=== PATIENT | female | born 1950 | race Caucasian/White ===

== ENCOUNTER → 2018-02-01 09:45 | Outpatient (CLI) | payer OTHER, SELFPAY | PROVIDERS: PCP Family Medicine; Visit Provider Orthopaedic Surgery | DX: M25.512 Pain in left shoulder (principal) | CPT/HCPCS: 99213 ==

== ENCOUNTER → 2018-02-20 11:31 | Outpatient (CLI) | payer OTHER, SELFPAY ==
--- NOTE | 2018-02-20 11:45 | DI.REPORT_ITS ---
SYMPTOM/DIAGNOSIS: MID BACK PAIN FOR YEARS, MID BACK PAIN LEFT SIDE M54.9 THORACIC SPINE: Comparison is made with chest x-ray dated 11 January 2018, The vertebral bodies are well maintained in height. There are degenerative disc changes greatest at T8-9 with anterior disc space narrowing and sclerosis. There is no significant scoliosis. There is no gross evidence of a lytic or blastic lesion. The heart size is normal. The lungs are clear. IMPRESSION: Degenerative disc changes greatest at T8-9 anteriorly.
== END ==
PROVIDERS: PCP Family Medicine; Visit Provider Family Medicine
DX: M54.6 Pain in thoracic spine (principal); M51.34 Other intervertebral disc degeneration, thoracic region
CPT/HCPCS: 72072

== ENCOUNTER 2018-03-13 00:55 | Outpatient (CLI) | payer OTHER, SELFPAY ==
--- NOTE | 2018-03-13 10:44 | DI.MRI_ITS ---
SYMPTOMS/DIAGNOSIS: MID LOWER BACK PAIN, M54.14, LEFT > RIGHT RIB PAIN MRI OF THE THORACIC SPINE: Comparison is made with plain films dated January,. Comparison is also made with a chest CT of October,. T1, T2, STIR and T2 3D sagittal and T2 axial sequences were performed. There are degenerative disc changes at T8-9 with endplate osteophytes, disc space narrowing and sclerosis. No disc herniation is seen at any level. There is no central canal stenosis or neural foraminal narrowing. The cord signal and marrow signal appear normal. No paraspinal masses are seen. IMPRESSION: Degenerative disc changes at T8-9. No evidence of disc herniation , neural foraminal narrowing or central canal stenosis.
== END 2018-03-13 01:15 ==
PROVIDERS: PCP Family Medicine; Visit Provider Nurse Practitioner Family
DX: M54.14 Radiculopathy, thoracic region; R07.81 Pleurodynia; M51.14 Intervertebral disc disorders with radiculopathy, thoracic region
CPT/HCPCS: 72146

== ENCOUNTER 2018-03-21 12:44 | Outpatient (CLI) | payer OTHER, SELFPAY ==
--- NOTE | 2018-03-21 10:35 | DI.RAD_ITS ---
SYMPTOMS/DIAGNOSIS: RT SHOULDER PAIN WITH RESTRICTED RUE ABDUCTION, M25.511 RIGHT SHOULDER: Five views were obtained. No bony or soft tissue abnormality is seen.
== END 2018-03-21 13:04 ==
PROVIDERS: PCP Family Medicine; Visit Provider Nurse Practitioner Family
DX: M25.511 Pain in right shoulder (principal); M25.611 Stiffness of right shoulder, not elsewhere classified
CPT/HCPCS: 73030

== ENCOUNTER 2018-08-08 00:56 | Outpatient (CLI) | payer OTHER, MEDICARE, SELFPAY ==
--- NOTE | 2018-08-08 12:56 | DI.MAMMO_ITS ---
SYMPTOMS/DIAGNOSIS: SCREENING, Z12.31 BILATERAL SCREENING MAMMOGRAM: Mammograms were interpreted according to the usual protocol including computer analysis with CAD system, tomosynthesis and C view imaging. Comparison is made with exams from 2013 through 2017. The breasts are composed of scattered fibroglandular densities. No suspicious masses or suspicious microcalcifications are seen. There has been no significant change. IMPRESSION: Category 1B, negative mammogram. Yearly screening mammography is recommended. [facility] ASSESSMENT OF FINDINGS: Negative. Category 1. Patient will receive a letter notifying them of these results. BI-RADS category B. There are scattered areas of fibroglandular density.
== END 2018-08-08 01:16 ==
PROVIDERS: PCP Family Medicine; Visit Provider Obstetrics & Gynecology Gynecology
DX: Z12.31 Encounter for screening mammogram for malignant neoplasm of breast (principal)
CPT/HCPCS: 77063; 77067

== ENCOUNTER 2018-11-30 02:07 | Outpatient (CLI) | payer OTHER, MEDICARE, SELFPAY ==
[2018-11-30 11:24] LABS: Cholesterol 201 mg/dL (50-200); HDL Cholesterol 61 mg/dL (40-60); LDL CHOLESTEROL 119 mg/dL (<100); Triglyceride 70 mg/dL (30-150)
== END 2018-11-30 02:27 ==
PROVIDERS: PCP Family Medicine; Visit Provider Family Medicine
DX: E78.5 Hyperlipidemia, unspecified (principal)
CPT/HCPCS: 36415; 80061; 83721

== ENCOUNTER 2019-07-23 11:19 | Outpatient (CLI) | payer OTHER, MEDICARE, SELFPAY ==
--- NOTE | 2019-07-23 11:24 | DI.RAD_ITS ---
EXAM: XR CERVICAL SP MUSE TRAUMA 2-3V CLINICAL HISTORY: Pain TECHNIQUE: COMPARISON: CERV SP.WITH OBL OR FLEX/EXT from 10/15/2014 FINDINGS: Two views were obtained. Prevertebral soft tissues appear intact. Intervertebral disc spaces appear fairly well maintained. Slight degenerative changes of the facet joints and endplates noted. No ot her bony abnormality seen. IMPRESSION: Mild degenerative changes, no other specific abnormality seen.
--- NOTE | 2019-07-23 11:29 | DI.RAD_ITS ---
EXAM: XR SHOULDER LT COMPLETE 2+V CLINICAL HISTORY: SHOULDER PAIN TECHNIQUE: COMPARISON: No exams were available for comparison FINDINGS: Two views were obtained. There appear to be hypertrophic degenerative changes of AC joint. Cartilag inous joint space of glenohumeral joint appears fairly well maintained. Minimal marginal osteophyte formation noted involving humerus and glenoid. No other significant bony abnormality seen on this li mited series. IMPRESSION:
== END 2019-07-23 11:39 ==
PROVIDERS: PCP Family Medicine; Visit Provider Student in an Organized Health Care Education/Training Program
DX: M54.2 Cervicalgia (principal); M25.512 Pain in left shoulder; M47.812 Spondylosis without myelopathy or radiculopathy, cervical region; M19.012 Primary osteoarthritis, left shoulder
CPT/HCPCS: 72040; 73030

== ENCOUNTER 2019-07-24 02:09 | Outpatient (CLI) | payer OTHER, MEDICARE, SELFPAY ==
[2019-07-24 08:22] LABS: HCT 41.8 % (36.0-46.0); HGB 13.9 g/dL (12.0-15.5); Mean Corp. HGB Concentration 33.3 g/dL (32.0-36.0); Mean Corpuscular Hemoglobin 28.7 pg (27.0-33.0); Mean Corpuscular Volume 86.2 fL (80-95); Mean Platelet Volume 9.8 fL (8.0-11.0); Platelet Count 283 x1000/uL (130-400); RBC 4.85 m/cumm (4.00-5.20); RBC Distribution Width 13.3 % (11.7-14.6); White Blood Cell Count 8.17 k/cumm (4.4-10.8)
[2019-07-24 09:10] LABS: ALT 23 U/L (14-59); AST 20 U/L (15-37); Alkaline Phosphatase 110 U/L (46-116); BUN 14 mg/dL (7-18); Bilirubin, Total 0.4 mg/dL (0.2-1.0); CREATININE 0.87 mg/dL (0.55-1.02); Chloride 103 mmol/L (98-107); Glucose 109 mg/dL (74-106); Potassium 4.1 mmol/L (3.5-5.1); Sodium 143 mmol/L (136-145); Total Protein 7.5 g/dL (6.4-8.2)
== END 2019-07-24 02:29 ==
PROVIDERS: PCP Family Medicine; Visit Provider Family Medicine
DX: I10 Essential (primary) hypertension (principal)
CPT/HCPCS: 36415; 80053; 85027

== ENCOUNTER 2019-08-01 01:30 | Outpatient (CLI) | payer OTHER, SELFPAY ==
--- NOTE | 2019-08-01 13:58 | DI.MRI_ITS ---
EXAM: MR UPPER JOINT LT WO CLINICAL HISTORY: LEFT SHOULDER TRAUMATIC WEAKNESS AND PAIN, M75.52 BURSITIS, M75.22 BICIPITAL TENDI NITIS, M75.42, S46.012A. TECHNIQUE: Multiplanar multisequence MRI was performed. MR examination of the left shoulder was per formed according to the usual protocol. COMPARISON: MRI - L UPPER JOINT WO CONT from 10/21/2016 XR SHOULDER LT COMPLETE 2+V from 07/23/2019 FINDINGS: There are hypertrophic degenerative changes and some signal abnormalities at the acromioclavicular fransisca int, subchondral bone with a small quantity of joint fluid in the acromioclavicular joint. Small hugo ntity of joint fluid also noted at the glenohumeral joint. Requisition raises the possibility of biceps tendon abnormality. The tendon appears normally positio beronica in the bicipital groove. Minimal fluid in the bicipital tendon sheath. Mild signal abnormality and thickening of the proximal 2 cm of the tendon adjacent to the biceps anchor. Tiny longitudinal t ear may be present but no major tear or retraction is seen. Subscapularis appears intact. Infraspinatus tendon appears intact except for minimal thickening near its humeral insertion. There is marked thickening of the supraspinatus tendon and there appears to be an attachment tear measuring about 10 x 7 x 6 millimeters. Glenoid labrum appears grossly intact as visualized. IMPRESSION: Mild bicipital tendinitis, possible tiny longitudinal tear near the biceps anchor. Supraspinatus tendon attachment tear, 10 x 6 x 7 millimeters.
== END 2019-08-01 01:50 ==
PROVIDERS: PCP Family Medicine; Visit Provider Student in an Organized Health Care Education/Training Program
DX: M25.512 Pain in left shoulder (principal); M75.52 Bursitis of left shoulder; M75.22 Bicipital tendinitis, left shoulder; M75.42 Impingement syndrome of left shoulder; M75.102 Unspecified rotator cuff tear or rupture of left shoulder, not specified as traumatic
CPT/HCPCS: 73221

== ENCOUNTER → 2019-08-20 07:58 | Outpatient (BNVA) | payer OTHER, SELFPAY | PROVIDERS: PCP Family Medicine; Referring Provider Family Medicine; Visit Provider Student in an Organized Health Care Education/Training Program | DX: S46.012D Strain of muscle(s) and tendon(s) of the rotator cuff of left shoulder, subsequent encounter (principal); W00.0XXD Fall on same level due to ice and snow, subsequent encounter; M75.52 Bursitis of left shoulder; M75.42 Impingement syndrome of left shoulder; M75.22 Bicipital tendinitis, left shoulder; G56.02 Carpal tunnel syndrome, left upper limb; I10 Essential (primary) hypertension | CPT/HCPCS: 99214 ==

== ENCOUNTER 2020-03-23 02:32 | Outpatient (CLI) | payer OTHER, SELFPAY ==
[2020-03-23 12:46] LABS: Calculated LDL 156 mg/dL (<100); Cholesterol 240 mg/dL (<200); HDL Cholesterol 70 mg/dL (40-60); Hemoglobin A1C 5.9 % (<5.7); Triglyceride 74 mg/dL (<150)
== END 2020-03-23 02:52 ==
PROVIDERS: PCP Family Medicine; Visit Provider Family Medicine
DX: E78.5 Hyperlipidemia, unspecified (principal); R73.9 Hyperglycemia, unspecified
CPT/HCPCS: 36415; 80061; 83036

== ENCOUNTER 2020-04-13 00:28 | Outpatient (CLI) | payer OTHER, SELFPAY ==
--- NOTE | 2020-04-13 11:00 | DI.MAMMO_ITS ---
EXAM: MG MAMMO SCREENING CLINICAL HISTORY: screening TECHNIQUE: Bilateral full field digital CC and MLO mammographic images were obtained with 3D tomosyn thesis and utilizing computer aided detection (CAD). COMPARISON: Available for comparison. FINDINGS: Masses/Architectural Distortion: None seen. Microcalcifications: No suspicious pleomorphic-type are seen. Skin Thickening/Nipple Retraction: None. IMPRESSION: 1. No significant interval change with no specific features of malignancy noted. 2. Unless there is more urgent need, screening mammography is recommended, as per [employer] guidelines. BI-RADS Category 1 - Negative Breast Density - Category B - Scattered areas of fibroglandular density A negative radiographic report should not delay biopsy if a dominant or clinically suspicious mass is present. Up to ten percent of cancers are not identified on mammography. A negative report may reinforce clinical impression. Adenosis and dense breasts may obscure an underlying neoplasm. False positive reports average 6 to 10%. Patient will receive a letter notifying them of these results.
== END 2020-04-13 00:48 ==
PROVIDERS: PCP Family Medicine; Visit Provider Obstetrics & Gynecology Gynecology
DX: Z12.31 Encounter for screening mammogram for malignant neoplasm of breast (principal)
CPT/HCPCS: 77063; 77067

== ENCOUNTER 2020-09-18 05:03 | Outpatient (CLI) | payer OTHER, SELFPAY ==
--- NOTE | 2020-09-18 08:15 | DI.RAD_ITS ---
EXAM: XR LUMBAR SPINE COMPLETE CLINICAL HISTORY: left lower back pain for months,m54.9. TECHNIQUE: 2D digital imaging was performed. COMPARISON: No exams were available for comparison FINDINGS: Stool and bowel gas partially obscures the lumbar spine and sacrum. BONES: No fracture or destructive lesion. Vertebral bodies are unremarkable. Mild facet hypertrophy i dentified. DISKS: Intervertebral disc spaces are maintained. Endplate osteophytes at L4-5. ALIGNMENT: Lumbar spinal alignment is within normal limits. SOFT TISSUE: Aortic calcification. Vascular clips in the pelvis. IMPRESSION: Mild degenerative changes, greatest at L4-5. DATA REPOSITORY: RADIATION DOSE DELIVERED:
== END 2020-09-18 05:23 ==
PROVIDERS: PCP Family Medicine; Visit Provider Family Medicine
DX: M47.816 Spondylosis without myelopathy or radiculopathy, lumbar region (principal)
CPT/HCPCS: 72110

== ENCOUNTER 2020-10-14 02:13 | Outpatient (CLI) | payer OTHER, SELFPAY ==
--- NOTE | 2020-10-14 06:45 | DI.MRI_ITS ---
EXAM: MR LUMBAR SPINE WO CLINICAL HISTORY: left sciatica DESPITE PT,LOW BACK PAIN, M54.5. TECHNIQUE: Multiplanar multisequence MRI of the Lumbar spine was performed. COMPARISON: MR MRI - LUMBAR SPINE WO CONTRAST from 07/04/2008 CR XR LUMBAR SPINE COMPLETE from 09/18/2020 FINDINGS: Conus medullaris is at normal level. There is no evidence of conus mass nor subjacent clumping of in trathecal nerve roots to suggest arachnoiditis. The distal thecal sac appears unremarkable.There is no evidence of Tarlov intrasacral cysts nor other significant findings within the sacral canal Bones:There are no fractures nor ominous osseous lesions in the lumbar vertebral bodies and visualize d sacrum. Absence of posterior osseous elements at lower 2 levels. No fusion hardware. With respect to the individual levels... T12-L1: Unremarkable L1-2: Normal disc height and signal. No disc herniation nor central canal stenosis.No foraminal steno sis L2-3: Normal disc height. Mild annular bulging without a distinct focal disc herniation.No 2 central spinal canal stenosis. No foraminal stenosis. No facet arthropathy.No facet arthropathy. L3-4: Preserved disc height. However, there is posterior broad annular bulging which is relatively s ymmetrical and which extends into the floor both exiting neural foramina but is not associated with f oraminal stenosis given that there is minimal if any significant height loss of the disc space. Pérez sarahy, there is mild central spinal canal stenosis due to the broad annular bulging and short AP dimens ions the pedicles and mild degenerative facet joint changes.. L4-5: Normal disc height and signal the exception of some narrowing of the most lateral left side of the disc space where there also osteophytes. I note that the prior plain films of 09/18/2020 were mi slabeled right and left on the AP view. Indeed the osteophytes this level are on the left side. At this level there is been previous surgery with removal of posterior osseous elements. Central can al dimensions are lower normal. There is broad annular bulging which flattens the anterior aspect of the thecal sac and there is also a superimposed central subligamentous disc protrusion which extends posteriorly 3 millimeters. Nevertheless, the central canal dimensions are lower normal. With respe ct to the exiting neural foramina, there is mild-moderate foraminal narrowing on the left side at thi s level which is due to the annular bulging into the floor of the exiting neural foramen and height l oss on the left side of this disc space. There is no vertical foraminal stenosis on the opposite-rig ht side at this level. Mild degenerative changes are seen in the right facet joint. L5-S1: Preserved disc height and signal. Mild central annular bulging without a dominant disc hernia tion. There is also been removal of posterior osseous elements at this level. There is mild antral spinal canal stenosis. There is no significant foraminal stenosis on either side. No facet arthropa thy evident at this level. Soft tissues: paraspinal soft tissues appear unremarkable. IMPRESSION: 1. There has been previous surgery with removal of posterior osseous elements at the lower 2 levels a s described above. 2. There are findings as described above at L3-4, L4-5, and L5-S1 levels. There is no prominent cent ral canal stenosis. There is, however, an element of asymmetric foraminal stenosis on left side at L 4-5 level. 3. Minimal facet joint degenerative changes in the lumbar spine. Mild scoliosis convex left. DATA REPOSITORY:
== END 2020-10-14 02:33 ==
PROVIDERS: PCP Family Medicine; Visit Provider Family Medicine
DX: M54.32 Sciatica, left side (principal); M54.5 Low back pain; M47.817 Spondylosis without myelopathy or radiculopathy, lumbosacral region
CPT/HCPCS: 72148

== ENCOUNTER 2020-12-04 00:31 | Outpatient (CLI) | payer OTHER, SELFPAY ==
[2020-12-04 12:53] LABS: Calculated LDL 142 mg/dL (<100); Cholesterol 235 mg/dL (<200); HDL Cholesterol 75 mg/dL (40-60); Triglyceride 90 mg/dL (<150)
[2020-12-04 13:02] LABS: Hemoglobin A1C 5.9 % (<5.7)
== END 2020-12-04 00:32 | disposition home or self-care (01) ==
LOC: LOS 00:33
PROVIDERS: PCP Family Medicine; Visit Provider Family Medicine
DX: R73.9 Hyperglycemia, unspecified (principal); E78.5 Hyperlipidemia, unspecified
CPT/HCPCS: 36415; 80061; 83036

== ENCOUNTER 2020-12-17 14:17 | Outpatient (CLI) | payer OTHER, SELFPAY ==
--- NOTE | 2020-12-17 06:00 | DI.RAD_ITS ---
Exam(s) XR PAIN CLINIC LUMBAR SP 2V EXAM: XR PAIN CLINIC LUMBAR SP 2V CLINICAL HISTORY: Dx:Lumbar Radiculopathy TECHNIQUE: 2D and realtime digital imaging was performed. Radiologist not present. CONTRAST MATERIAL: None. COMPARISON: No exams were available for comparison FINDINGS: Fluoroscopy was provided for pain management therapy. Apparently L4 transforaminal epidural injectio n Please refer to procedure for complete details Cumulative dose: Ka,r= mGy IMPRESSION: RADIATION DOSE DELIVERED:
[2020-12-17 14:29] VITALS: BP 142/69; PULSE 69; RESP 18; TEMP 36.4; O2SAT 95
[2020-12-17] MEDS: Omnipaque 240 MG/ML 50 ML BTL IJ (14:54)
[2020-12-17] MEDS: Dexamethasone Sod. Phos./Pres-Free 10 MG/ML VIAL IJ (14:54)
--- NOTE | 2020-12-17 15:16 | PDOC.PAIN_ITS ---
Pain Clinic Procedure Note Procedure Note Procedure Note: LUMBAR / SACRAL TRANSFORAMINAL INJECTION Kavita Becerra has been referred to the [facility] for a transforaminal nerve root block and steroid injection. COMMENTS:She was seen in our office on 12/01/2020. Pre-procedure VAS pain level was 6/10. Dx: Lumbosacral radiculopathy Patient was interviewed and the medical record reviewed. There were no medical, pharmacologic, radiographic or other structural contraindications to attempting fluoroscopically guided transforaminal nerve root block and epidural steroid injection. Risks and expected side effects as well as potential benefit of the procedure were reviewed and voiced concerns addressed. The printed consent form was signed and witnessed. Standard time-out procedure was performed. Patient was placed in the prone position on the fluoroscopy table and automated blood pressure cuff and pulse oximeter applied. Fluoroscopy was utilized to identify the left L4 neural foramen between L4 and L5. A skin payal was made for the needle insertion site. A Chlorhexadine prep was carried out, and sterile drapes were applied. Local anesthesia was achieved in the skin and subcutaneous tissues. A 22 gauge curved tip spinal needle was then inserted, advanced with fluoroscopic guidance into the neural foramen, confirmed on the lateral view. After negative aspiration, 2 ml of Omnipaque 240 was injected confirming position in A/P and lateral views. This showed a good spread of dye transforaminally into the epidural space. There was no vascular update with contrast injection under continuous fluoroscopy and digital substraction. 15 mg of Dexamethasone was injected, followed by 0.5 ml of 1% Xylocaine flush for the nerve root block, as well. There was no unusual discomfort expressed.The needle was withdrawn. The patient tolerated the procedure well. A Band-Aid was applied. Vital signs were stable throughout the procedure and were as recorded in nursing records. If given, dosages of intravenous drugs for anxiolysis and analgesia were documented in nursing records. Follow up plans and appointments were discussed. Post procedure instruction was given as documented in nursing records and patient was discharged in the care of an identified certified driver examiner. COMMENTS:Post-procedure pain VAS was 0/10. Ace Conde DO, MPH Pain Management CC: Sedrick Phan MD
[2020-12-17 15:24] VITALS: BP 157/67; PULSE 74; RESP 20; O2SAT 99
== END 2020-12-17 14:18 | disposition home or self-care (01) ==
PROVIDERS: PCP Family Medicine; Visit Provider Preventive Medicine Occupational Medicine
DX: M54.17 Radiculopathy, lumbosacral region (principal)
CPT/HCPCS: 64483; 72100; Q9967

== ENCOUNTER 2021-02-02 03:28 | Outpatient (CLI) | payer OTHER, SELFPAY ==
[2021-02-02 12:20] LABS: BUN 17 mg/dL (7-18); CREATININE 0.8 mg/dL (0.55-1.02)
== END 2021-02-02 03:29 | disposition home or self-care (01) ==
LOC: LOS 03:29
PROVIDERS: PCP Family Medicine; Visit Provider Neurological Surgery
DX: M51.16 Intervertebral disc disorders with radiculopathy, lumbar region (principal)
CPT/HCPCS: 36415; 84520; 82565

== ENCOUNTER 2021-02-22 00:56 | Outpatient (CLI) | payer OTHER, SELFPAY ==
[2021-02-22] MEDS: Gadoterate meglumine 20 ML VIAL 13 ML IVP (08:44)
[2021-02-22] MEDS: Normal Saline Flush 10 ML SYR IVP (08:45)
--- NOTE | 2021-02-22 09:15 | DI.MRI_ITS ---
Exam(s) MR LUMBAR SPINE WO/W EXAM: MR LUMBAR SPINE WO/W CLINICAL HISTORY: LEFT L4-5 FORAMINAL MASS, POSSIBLY ENLARGED ROOT VS TUMOR OR CYST. TECHNIQUE: Multiplanar multisequence MRI of the Lumbar spine was performed. Both pre and post contra st infused sequences were performed. Contrast injected was 13 mL Dotarem. COMPARISON: CR XR LUMBAR SPINE COMPLETE from 09/18/2020 MR MR LUMBAR SPINE WO from 10/14/2020 MR MR LUMBAR SPINE WO from 10/14/2020 FINDINGS: Conus medullaris is at normal level. There is no evidence of conus mass nor subjacent clumping of in trathecal nerve roots to suggest arachnoiditis. The distal thecal sac appears unremarkable.There is no evidence of Tarlov intrasacral cysts nor other significant findings within the sacral canal Bones:There are no fractures nor ominous osseous lesions in the lumbar vertebral bodies and visualize d sacrum. With respect to the individual levels... T12-L1: Unremarkable L1-2: Normal disc height and signal. No disc herniation nor central canal stenosis.No foraminal steno sis L2-3: Normal disc height. Mild annular bulging without a distinct focal disc herniation. Central can al dimensions are within normal limits and there is no significant foraminal stenosis. No facet arth ropathy. No abnormal enhancement. L3-4: Preserved disc height. Again noted is broad annular bulging which is relatively symmetrical an d extends into the floor both exiting neural foramina but without significant foraminal stenosis due to the relatively preserved disc height again evident at this level. However, there is again noted m ild central spinal canal stenosis which is due to a combination of the broad annular bulging and shor t AP dimensions the pedicles. No abnormal enhancement at this level.Appearance of this level is unch anged from the prior MRI study of October 2020. L4-5: Again noted is evidence of previous surgery with removal of posterior osseous elements. Annula r bulging at this level is unchanged. Central canal dimensions are lower normal. No foraminal steno sis on the right side. There is an element of foraminal stenosis on the left side at this level due to the fact that there has been some height loss on the left side of this disc space, unchanged from the previous study. No abnormal enhancement. L5-S1: This level exhibits preserved disc height and signal. Again noted is surgical removal of pos terior osseous elements. Mild annular bulging without a prominent disc herniation. Central canal di mensions are lower normal. No significant foraminal stenosis evident at this level. No obvious face t arthropathy. No abnormal enhancement. Soft tissues: paraspinal soft tissues appear unremarkable.No evidence of epidural nor paraspinal abs cess. IMPRESSION: 1. Minimal if any significant change when compared to the prior MRI scan of October 14, 2020. Again no zan is evidence of previous surgery with removal of posterior osseous elements at the lower 2 levels, as described above. 2. There is asymmetric foraminal stenosis again noted on the left side at L4-5 level. 3. No prominent central spinal canal stenosis. 4. No abnormal enhancing findings. No evidence of paraspinal nor epidural abscess. DATA REPOSITORY:
== END 2021-02-22 01:16 ==
PROVIDERS: PCP Family Medicine; Visit Provider Neurological Surgery
DX: M47.816 Spondylosis without myelopathy or radiculopathy, lumbar region (principal); Z98.890 Other specified postprocedural states
CPT/HCPCS: 72158

== ENCOUNTER 2021-02-22 02:53 | Outpatient (CLI) | payer OTHER, SELFPAY ==
[2021-02-22 09:50] LABS: Abs Immature Grans 0.02 10^3/uL (0.0-0.06); Absolute Basophil Count 0.06 10^3/uL (0.0-0.2); Absolute Eosinophil Count 0.14 10^3/uL (0.0-0.7); Absolute Lymphocyte Count 2.04 10^3/uL (1.2-3.4); Absolute Monocyte Count 0.55 10^3/uL (0.1-0.8); Absolute Neutrophil Count 3.52 10^3/uL (1.2-6.7); Basophils % 0.9; Eosinophils % 2.2; HCT 40.3 % (36.0-46.0); Immature Grans % 0.3; Lymphocytes % 32.2; MCH 28.7 pg (27.0-33.0); MCHC 32.3 % (32.0-36.0); MPV 10.2 fL (8.0-11.0); Monocytes % 8.7; Neutrophils % 55.7; Nucleated RBC 0 %; Platelet Count 234 10^3/uL (130-400); RBC 4.53 10^6/uL (3.93-5.22); RDW 12.9 % (11.7-14.6); RDW-SD 42.1 fL; WBC 6.33 10^3/uL (4.4-10.8)
[2021-02-22 10:13] LABS: Hemoglobin A1C 5.9 % (<5.7)
[2021-02-22 10:59] LABS: Vitamin D 25 Total 43.1 ng/mL (30-100)
[2021-02-22 11:20] LABS: ALT 15 U/L (14-59); AST 20 U/L (15-37); Albumin 3.9 g/dL (3.4-5.0); Alkaline Phosphatase 101 U/L (46-116); Anion Gap 7.9 mmol/L (3-11); BUN 16 mg/dL (7-18); Bilirubin, Total 0.4 mg/dL (0.2-1.0); CO2 29.1 mmol/L (21.0-32.0); CREATININE 0.9 mg/dL (0.55-1.02); Calcium 9.8 mg/dL (8.5-10.1); Calculated LDL 144 mg/dL (<100); Chloride 107 mmol/L (98-107); Cholesterol 242 mg/dL (<200); Ferritin 87 ng/mL (8-252); Folate 12.6 ng/mL (8.6-20.0); Glucose 112 mg/dL (74-106); HDL Cholesterol 75 mg/dL (40-60); Magnesium 2.3 mg/dL (1.8-2.4); Potassium 4.3 mmol/L (3.5-5.1); Sodium 144 mmol/L (136-145); TSH 1.56 uIU/mL (0.36-3.74); Total Protein 6.9 g/dL (6.4-8.2); Triglyceride 117 mg/dL (<150); Vitamin B12 965 pg/mL (193-986)
[2021-02-22 16:11] LABS: T3,Free 3.2 pg/mL (2.8-5.3)
[2021-02-23 09:18] LABS: IgA 298 mg/dL (85-499)
== END 2021-02-22 02:54 | disposition home or self-care (01) ==
LOC: LBO 02:53
PROVIDERS: PCP Family Medicine; Visit Provider Psychiatry & Neurology Psychiatry
DX: F33.41 Major depressive disorder, recurrent, in partial remission (principal); Z79.899 Other long term (current) drug therapy
CPT/HCPCS: 36415; 80053; 80061; 82306; 82784; 82607; 82728; 82746; 83036; 83735; 84439; 84443; 84481; 85025

== ENCOUNTER 2021-04-14 22:22 | Outpatient (REF) | payer OTHER, SELFPAY | END 2021-04-14 22:23 | disposition home or self-care (01) | LOC: LBN 22:22 | PROVIDERS: PCP Family Medicine; Visit Provider Family Medicine | DX: R30.0 Dysuria (principal) | CPT/HCPCS: 87077; 87086; 87186 ==

== ENCOUNTER 2021-06-16 00:20 | Outpatient (CLI) | payer MEDICARE, SELFPAY ==
--- NOTE | 2021-06-16 12:30 | DI.MAMMO_ITS ---
Exam(s) MAMMO SCREENING EXAM: MAMMO SCREENING CLINICAL HISTORY: screening. TECHNIQUE: Bilateral full field digital CC and MLO mammographic images were obtained with 3D tomosyn thesis and utilizing computer aided detection (CAD). COMPARISON: Prior mammograms dating back to 2010, the most recent being April 2020. FINDINGS: There are no new spiculated masses nor malignant appearing microcalcification groups. There is no significant architectural distortion nor skin thickening-retraction. IMPRESSION: No radiographic evidence of malignancy. BI-RADS Category 1 - Negative Breast Density - Category B - Scattered areas of fibroglandular density Breast density Category C or D implies that the patient has dense breast tissue. Dense breast tissue can make it harder to find cancer on a mammogram. Dense breast tissue is also associated with an incr eased risk of breast cancer. This information about the result of the mammogram report was provided to the patient to raise their awareness. Use this report when you speak with the patient about their risks for breast cancer, which includes their family history. At that time, you may recommend additional screening tests (Ultrasoun d or MRI) as these tests may add significant information. A negative radiographic report should not delay biopsy if a dominant or clinically suspicious mass is present. Up to ten percent of cancers are not identified on mammography. A negative report may reinforce clinical impression. Adenosis and dense breasts may obscure an underlying neoplasm. False positive reports average 6 to 10%. Patient will receive a letter notifying them of these results.
== END 2021-06-16 00:40 ==
PROVIDERS: PCP Family Medicine; Visit Provider Obstetrics & Gynecology Gynecology
DX: Z12.31 Encounter for screening mammogram for malignant neoplasm of breast (principal)
CPT/HCPCS: 77063; 77067

== ENCOUNTER 2021-07-05 00:40 | Outpatient (CLI) | payer MEDICARE, SELFPAY ==
--- NOTE | 2021-07-05 14:45 | DI.MRI_ITS ---
Exam(s) MR CERVICAL SPINE WO EXAM: MR CERVICAL SPINE WO CLINICAL HISTORY: BALANCE DISORDER, R26.89 TECHNIQUE: Multiplanar multisequence MRI of the cervical spine was performed without intravenous con trast. COMPARISON: MR MRI - CERVICAL SPINE WO CONT from 08/01/2016 MR MRI - CERVICAL SPINE WO CONT from 08/01/2016 MR MRI - BRAIN W/WO CONTRAST from 03/10/2017 MR MRA HEAD WO from 03/10/2017 MR MRA HEAD WO from 03/10/2017 CR XR CERVICAL SP MUSE TRAUMA 2-3V from 07/23/2019 CR XR CERVICAL SP MUSE TRAUMA 2-3V from 07/23/2019 FINDINGS: BONES: Vertebral body heights are maintained. Intervertebral disc spaces are normal. Alignment is nor mal. Bone marrow signal intensity is within normal limits. CERVICAL CORD: Craniovertebral junction is unremarkable. The cervical cord is normal size and signal intensity. SOFT TISSUES: Adenoid cysts. C2-3: No disc herniation or bulge is identified. C3-4: Minimal disc bulging. C4-5: Minimal disc bulging. C5-6: Mild interval worsening of degenerative disc changes with endplate osteophytes and mild disc bu lging. Mild neural foraminal narrowing. Mild central canal stenosis, with narrowing of the AP dimen erick.. C6-7: No disc herniation or bulge is identified. C7-T1: No disc herniation or bulge is identified. IMPRESSION: Mild central canal stenosis secondary to degenerative disc changes at C5-6. Mild neural foraminal na rrowing. No disc herniation. Normal cord signal. DATA REPOSITORY:
== END 2021-07-05 01:00 ==
PROVIDERS: PCP Family Medicine; Visit Provider Neurological Surgery
DX: M50.322 Other cervical disc degeneration at C5-C6 level (principal); M48.02 Spinal stenosis, cervical region; R26.89 Other abnormalities of gait and mobility
CPT/HCPCS: 72141

== ENCOUNTER 2021-08-16 19:09 | Outpatient (CLI) | payer MEDICARE, SELFPAY ==
--- NOTE | 2021-08-16 15:05 | DI.RAD_ITS ---
Exam(s) XR CERVICAL SP COMP W FLEX/EXT EXAM: XR CERVICAL SP COMP W FLEX/EXT CLINICAL HISTORY: NECK PAIN, IMBALANCE. TECHNIQUE: 2D digital imaging was performed. COMPARISON: CR XR CERVICAL SP MUSE TRAUMA 2-3V from 07/23/2019 MR MR CERVICAL SPINE WO from 07/05/2021 FINDINGS: No evidence of fracture, listhesis offset the spinal line. Mild-moderate disc space narrowing at C5- 6 levels again noted. This level also exhibits small bilateral Luschka joint osteophytes (and mild c entral spinal canal stenosis as per recent MRI scan). The other disc spaces exhibit normal height. No prominent facet arthropathy. No cervical ribs. Incidentally noted is calcified plaque at the carotid bifurcations bilaterally. IMPRESSION: Stable appearance of C5-6 disc space narrowing when compared to July 2019. Calcified plaque at the carotid bifurcations which indicates atherosclerotic involvement. Recommend Doppler imaging of the carotid arteries in the neck to determine if there is hemodynamically signific ant stenosis. DATA REPOSITORY: RADIATION DOSE DELIVERED:
== END 2021-08-16 19:29 ==
PROVIDERS: PCP Family Medicine; Visit Provider Physician Assistant Medical
DX: R26.89 Other abnormalities of gait and mobility; M50.322 Other cervical disc degeneration at C5-C6 level; M25.78 Osteophyte, vertebrae
CPT/HCPCS: 72052

== ENCOUNTER 2021-09-07 09:30 | Outpatient (CLI) | payer MEDICARE, SELFPAY ==
--- NOTE | 2021-09-07 09:30 | RT.EKG_ITS ---
APPROVED REPORT Exam: Resting ECG Reason for Exam: Pre-Op Patient Location: O HR:56 bpm ECG Measurements Heart Rate 56 AXIS AK 146 P 71 QRSd 80 QRS 64 QT 415 T 58 QTc 402 Conclusion Sinus bradycardia...rate< [address] depression, diffuse leads...ST <-0.07mV, ant/lat/inf
== END 2021-09-07 09:31 | disposition home or self-care (01) ==
LOC: DI.CM 09:31
PROVIDERS: PCP Family Medicine; Visit Provider Family Medicine
DX: Z01.818 Encounter for other preprocedural examination (principal); R00.1 Bradycardia, unspecified; R94.31 Abnormal electrocardiogram [ECG] [EKG]
CPT/HCPCS: 93010

== ENCOUNTER 2021-09-17 00:21 | Outpatient (CLI) | payer MEDICARE, SELFPAY ==
--- NOTE | 2021-09-17 11:00 | DI.RAD_ITS ---
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 There are mild dege nerative changes of both hips. There are mild degenerative changes of both SI joints without radiogr aphic evidence of fusion or sacroiliitis. There are degenerative changes of the lower lumbar spine w ith vacuum disc phenomenon at L4-5 and with loss of disc height at L4-5 and L5-S1. There are vascula r clips in the pelvis. IMPRESSION: Degenerative changes, predominantly involving lower lumbar spine. RADIATION DOSE DELIVERED: Total DLP
== END 2021-09-17 00:41 ==
PROVIDERS: PCP Family Medicine; Visit Provider Neurological Surgery
DX: M53.3 Sacrococcygeal disorders, not elsewhere classified (principal); M16.0 Bilateral primary osteoarthritis of hip; M51.37 Other intervertebral disc degeneration, lumbosacral region; Q76.49 Other congenital malformations of spine, not associated with scoliosis
CPT/HCPCS: 72190; 72202

== ENCOUNTER 2021-09-17 01:50 | Outpatient (CLI) | payer MEDICARE, SELFPAY ==
[2021-09-17 14:29] LABS: HCT 40.7 % (36.0-46.0); HGB 13.3 g/dL (11.2-15.7); MCH 28.9 pg (27.0-33.0); MCHC 32.7 % (32.0-36.0); MCV 88.3 fL (80-95); MPV 9.8 fL (8.0-11.0); Platelet Count 262 10^3/uL (130-400); RBC 4.61 10^6/uL (3.93-5.22); RDW 12.6 % (11.7-14.6); RDW-SD 40.8 fL
[2021-09-17 14:45] LABS: Bacteria Negative HPF (Negative); C & S Indicated? No; Crystals Negative HPF (Negative); Epithelial Cells Negative HPF (Negative); Mucus Negative (Negative); RBC Negative HPF (0-2); WBC Negative HPF (0-5)
[2021-09-17 15:53] LABS: ALT 22 U/L (14-59); AST 20 U/L (15-37); Albumin 4.2 g/dL (3.4-5.0); Alkaline Phosphatase 101 U/L (46-116); Anion Gap 10.1 mmol/L (3-11); BUN 15 mg/dL (7-18); Bilirubin, Total 0.4 mg/dL (0.2-1.0); CO2 27.9 mmol/L (21.0-32.0); CREATININE 0.9 mg/dL (0.55-1.02); Calcium 9.8 mg/dL (8.5-10.1); Chloride 102 mmol/L (98-107); Glucose 94 mg/dL (74-106); Potassium 3.9 mmol/L (3.5-5.1); Sodium 140 mmol/L (136-145); Total Protein 7.6 g/dL (6.4-8.2)
== END 2021-09-17 01:51 | disposition home or self-care (01) ==
LOC: LBO 01:50
PROVIDERS: PCP Family Medicine; Visit Provider Family Medicine
DX: R10.9 Unspecified abdominal pain (principal); R53.83 Other fatigue; R30.0 Dysuria
CPT/HCPCS: 36415; 80053; 85027; 81015; 87086

== ENCOUNTER 2021-09-23 02:07 | Outpatient (CLI) | payer MEDICARE, SELFPAY ==
--- NOTE | 2021-09-23 07:30 | DI.US_ITS ---
Exam(s) US CAROTID EXAM: US CAROTID CLINICAL HISTORY: carotid stenosis on xray,neck pain,m54.2. TECHNIQUE: Ultrasound carotids performed using grayscale, color-flow, and spectral Doppler imaging. COMPARISON: No exams were available for comparison FINDINGS: RIGHT CAROTID ARTERY: Plaque: Calcific plaque is seen in the distal common carotid artery in the carotid bulb. Velocity elevation: Please see below. LEFT CAROTID ARTERY: Plaque: Calcific plaque is seen in the common carotid artery. Velocity elevation: None. VERTEBRAL ARTERIES: Antegrade flow. Measurements: R Bulb: 111.2cm/s PS / 19.9cm/s ED R CCA: 122.8cm/s PS / 14.1cm/s ED R ECA: 180.5cm/s PS / 20.8cm/s ED R ICA Prox: 146.9cm/s PS /22cm/s ED R ICA Mid: 153.9cm/s PS / 34.7cm/s ED R ICA Distal: 144.6cm/s PS /34.7cm/s ED R Vert: 96.7cm/s PS / 16.5cm/s ED R SVR: 1.25 R DVR: 2.46 L Bulb: 135.4cm/s PS /30.1cm/s ED L CCA: 135.4cm/s PS / 34.7cm/s ED L ECA: 168.9cm/s PS /9.3cm/s ED L ICA Prox:149.2cm/s PS / 27.8cm/s ED L ICA Mid: 150.4cm/sPS / 39.3cm/s ED L ICA Distal: 145.8cm/s PS / 30.1cm/s ED L Vert: 61.1cm/s PS / 10.9cm/s ED L SVR: 1.11 L DVR: 1.13 IMPRESSION: Findings consistent with 50-69 percent bilateral internal carotid artery stenosis. Criteria for Carotid Stenosis: Normal: ICA PSV <125 cm/s no plaque or intimal thickening is visible. <50% stenosis: ICA PSV <125 cm/s and plaque or intimal thickening is visible. 50-69% stenosis: ICA PSV is 125-250 cm/s and plaque is visible. >70% stenosis to near occlusion: ICA PSV >250 cm/s with visible plaque and luminal narrowing. DATA REPOSITORY:
== END 2021-09-23 02:27 ==
PROVIDERS: PCP Family Medicine; Visit Provider Family Medicine
DX: M54.2 Cervicalgia (principal); I65.23 Occlusion and stenosis of bilateral carotid arteries
CPT/HCPCS: 93880

== ENCOUNTER 2022-03-09 14:06 | Outpatient (REF) | payer MEDICARE, SELFPAY ==
[2022-03-09 16:22] LABS: Bilirubin Negative (Negative); Blood Trace-intact (Negative); Clarity Clear (Clear); Glucose Negative (Negative); Ketones Negative (Negative); Leukocyte Esterase Large (Negative); Nitrite Negative (Negative); Specific Gravity 1.015 (1.005-1.025); Urobilinogen 0.2 EU/dL (Up TO 0.2)
[2022-03-09 17:18] LABS: Bacteria Many HPF (Negative); C & S Indicated? Yes; Casts Negative LPF (Negative); Crystals Negative HPF (Negative); Epithelial Cells Negative HPF (Negative); Mucus Negative (Negative); WBC >50 HPF (0-5)
== END 2022-03-09 14:07 | disposition home or self-care (01) ==
LOC: LBN 14:06
PROVIDERS: PCP Family Medicine; Visit Provider Family Medicine
DX: R30.0 Dysuria (principal)
CPT/HCPCS: 87077; 81003; 81015; 87086; 87186

== ENCOUNTER → 2022-06-29 01:54 | Outpatient (CLI) | payer MEDICARE, SELFPAY ==
--- NOTE | 2022-06-29 14:20 | DI.MAMMO_ITS ---
Exam(s) MAMMO SCREENING EXAM: MAMMO SCREENING CLINICAL HISTORY: screening,z12.39 TECHNIQUE: Bilateral full field digital CC and MLO mammographic images were obtained with 3D tomosyn thesis and utilizing computer aided detection (CAD). COMPARISON: Available for comparison. FINDINGS: Masses/Architectural Distortion: None seen. Microcalcifications: No suspicious pleomorphic-type are seen. Skin Thickening/Nipple Retraction: None. IMPRESSION: 1. No significant interval change with no specific features of malignancy noted. 2. Unless there is more urgent need, screening mammography is recommended, as per [employer] guidelines. BI-RADS Category 1 - Negative Breast Density - Category B - Scattered areas of fibroglandular density Breast density category C or D implies that the patient has dense breast tissue. Dense breast tissue is very common and is not abnormal but dense breast tissue can make it harder to find cancer on a ma mmogram. Also, dense breast tissue may increase their breast cancer risk. This information about the result of the mammogram report was provided to the patient to raise their awareness. Use this report when you speak with the patient about their risks for breast cancer, which includes their family hist ory. At that time, you may recommend for more screening tests (Ultrasound or MRI) as they might be us eful based on their risk. A negative radiographic report should not delay biopsy if a dominant or clinically suspicious mass is present. Up to ten percent of cancers are not identified on mammography. A negative report may reinforce clinical impression. Adenosis and dense breasts may obscure an underlying neoplasm. False positive reports average 6 to 10%. Patient will receive a letter notifying them of these results.
== END ==
PROVIDERS: PCP Family Medicine; Visit Provider Obstetrics & Gynecology Gynecology
DX: Z12.31 Encounter for screening mammogram for malignant neoplasm of breast (principal)
CPT/HCPCS: 77063; 77067

== ENCOUNTER 2022-10-25 21:38 | Outpatient (REF) | payer MEDICARE, SELFPAY | END 2022-10-25 21:39 | disposition home or self-care (01) | LOC: LBN 21:38 | PROVIDERS: PCP Family Medicine; Visit Provider Nurse Practitioner Family | DX: R30.0 Dysuria (principal) | CPT/HCPCS: 87086 ==

== ENCOUNTER 2022-10-28 00:45 | Outpatient (CLI) | payer MEDICARE, SELFPAY ==
--- NOTE | 2022-10-28 06:45 | DI.RAD_ITS ---
Exam(s) XR HIP LT COMPLETE AP PELVIS EXAM: XR HIP LT COMPLETE AP PELVIS INDICATION: left hip pain,M25.552. COMPARISON: CR XR PELVIS W OBLIQUES 3V from 09/17/2021 TECHNIQUE: 2D digital imaging was performed. Three views. FINDINGS: The hip joint spaces are maintained. Femoral heads appear intact. Hardware is now noted at the L5-S 1 level and at the left SI joint. IMPRESSION: No acute abnormality. DATA REPOSITORY: RADIATION DOSE DELIVERED:
== END 2022-10-28 01:05 ==
PROVIDERS: PCP Family Medicine; Visit Provider Family Medicine
DX: M25.552 Pain in left hip (principal)
CPT/HCPCS: 73502

== ENCOUNTER 2022-11-21 01:14 | Outpatient (CLI) | payer MEDICARE, SELFPAY ==
--- NOTE | 2022-11-21 | DI.MRI_ITS ---
Exam(s) MR LUMBAR SPINE WO/W EXAM: MR LUMBAR SPINE WO/W CLINICAL HISTORY: H/O LUMBAR FUSION,REC LT LEG RADICULAR PAIN,RADICULOPATHY,M51.15. TECHNIQUE: Multiplanar multisequence MRI of the Lumbar Spine was performed. CONTRAST MATERIAL: IV Contrast: 13 mL of Dotarem contrast administered. COMPARISON: MR MR LUMBAR SPINE WO/W from 02/22/2021 FINDINGS: Bones: The last intervertebral disc space is designated the L5/S1 level for the numbering purpose of this examination. The vertebral body heights are well maintained. Alignment is satisfactory. Mild de generative endplate signal changes are present. Postsurgical changes with posterior rods and pedicle screws at L5-S1. Cord: The conus tip ends at the L1 level. It is of normal size and signal intensity. T12-L1: No disc herniations or bulges are present. No central spinal canal or neural foraminal stenos is. L1-2: No disc herniations or bulges are present. No central spinal canal or neural foraminal stenosis . L2-3: No disc herniations or bulges are present. No central spinal canal or neural foraminal stenosis . L3-4: There is a diffuse disc bulge. There are mild hypertrophic changes of the facets and ligamentu m flavum. There is mild narrowing of the central spinal canal. There is mild bilateral neural nain inal stenosis. L4-5: There is a diffuse disc bulge. No significant central spinal canal stenosis is seen. There is moderately severe left and moderate right neural foraminal stenosis. L5-S1: No disc herniations or bulges are present. No central spinal canal or neural foraminal stenosi s. Soft tissues: There is an orthopedic screw seen in the left sacroiliac joint. The paraspinal soft ti ssues are unremarkable. There is no evidence of suspicious enhancement. IMPRESSION: 1. Diffuse disc bulge seen at L4-5 causing moderately severe left and moderate right neural foraminal stenosis. 2. Degenerative changes at L3-L4 causing mild central spinal canal and bilateral neural foraminal yamilka nosis. 3. Postsurgical changes at L4-L5, L5-S1 and the left SI joint. DATA REPOSITORY:
[2022-11-21 10:29] LABS: CREATININE 0.9 mg/dL (0.55-1.02); Estimated GFR 68.77 (mL/min/1.73m2)
[2022-11-21] MEDS: Normal Saline Flush 10 ML SYR IVP (10:38)
[2022-11-21] MEDS: Gadoterate meglumine 20 ML VIAL 13 ML IVP (10:39)
== END 2022-11-21 01:34 ==
LOC: DI 01:14
PROVIDERS: PCP Family Medicine; Visit Provider Physician Assistant Medical
DX: M51.15 Intervertebral disc disorders with radiculopathy, thoracolumbar region (principal); Z48.89 Encounter for other specified surgical aftercare
CPT/HCPCS: 72158; 82565

== ENCOUNTER 2022-12-14 09:28 | Emergency (ER) | payer MEDICARE, SELFPAY ==
--- NOTE | 2022-12-14 09:30 | RT.EKG_ITS ---
APPROVED REPORT Exam: Resting ECG Reason for Exam: Chest Pain Patient Location: E HR:55 bpm ECG Measurements Heart Rate 55 AXIS [place] 155 P 73 QRSd 84 QRS 36 QT 439 T 33 QTc 420 Conclusion Sinus bradycardia...rate< 60 Atrial premature complex...SV complex w/ short R-R interval
--- NOTE | 2022-12-14 09:30 | DI.RAD_ITS ---
Exam(s) XR CHEST 2V PA LATERAL EXAM: XR CHEST 2V PA LATERAL CLINICAL HISTORY: Chest pain. TECHNIQUE: 2D digital imaging was performed. COMPARISON: No exams were available for comparison FINDINGS: 2 views: Heart size is normal. The mediastinum is not widened. Lungs are clear. No infiltrates nor pleural effusions. IMPRESSION: No acute pulmonary findings. DATA REPOSITORY: RADIATION DOSE DELIVERED:
[2022-12-14 09:33] VITALS: BP 154/63; PULSE 57; RESP 18; TEMP 36.5; O2SAT 97
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
[2022-12-14 09:48] VITALS: RESP 16
--- NOTE | 2022-12-14 09:55 | NUR.NOTE ---
Nursing Note: patient reports tender area left of her sternum
[2022-12-14] MEDS: Aspirin 81 MG CHEW 243 MG CH (09:59)
[2022-12-14 10:04] LABS: Abs Immature Grans 0.01 10^3/uL (0.0-0.06); Absolute Basophil Count 0.07 10^3/uL (0.0-0.2); Absolute Eosinophil Count 0.18 10^3/uL (0.0-0.7); Absolute Lymphocyte Count 2.34 10^3/uL (1.2-3.4); Absolute Neutrophil Count 4.67 10^3/uL (1.2-6.7); Basophils % 0.9; Eosinophils % 2.3; HCT 42.6 % (36.0-46.0); Immature Grans % 0.1; Lymphocytes % 29.4; MCH 28.7 pg (27.0-33.0); MCHC 32.9 % (32.0-36.0); MCV 88 fL (80-95); MPV 9.6 fL (8.0-11.0); Monocytes % 8.8; Neutrophils % 58.5; Platelet Count 282 10^3/uL (130-400); RBC 4.87 10^6/uL (3.93-5.22); RDW 12.3 % (11.7-14.6); RDW-SD 39.8 fL; WBC 7.97 10^3/uL (4.4-10.8)
[2022-12-14 10:23] LABS: ALT 21 U/L (14-59); AST 22 U/L (15-37); Albumin 3.8 g/dL (3.4-5.0); Alkaline Phosphatase 111 U/L (46-116); Anion Gap 7.2 mmol/L (3-11); BUN 15 mg/dL (7-18); Bilirubin, Total 0.4 mg/dL (0.2-1.0); CO2 28.8 mmol/L (21.0-32.0); CREATININE 0.8 mg/dL (0.55-1.02); Calcium 9.6 mg/dL (8.5-10.1); Chloride 102 mmol/L (98-107); Estimated GFR 79.22 (mL/min/1.73m2); Glucose 103 mg/dL (74-106); Magnesium 2.1 mg/dL (1.8-2.4); Potassium 4.2 mmol/L (3.5-5.1); Sodium 138 mmol/L (136-145); Total Protein 7.8 g/dL (6.4-8.2); Troponin I < 50 ng/L (<or=60)
[2022-12-14 10:59] VITALS: BP 161/53; PULSE 55; RESP 18; TEMP 36.6; O2SAT 97
== END 2022-12-14 11:03 | disposition home or self-care (01) ==
PROVIDERS: Emergency Provider Registered Nurse Emergency; PCP Family Medicine
DX: R07.9 Chest pain, unspecified (principal)
CPT/HCPCS: 80053; 93005; 99284; 71046; 83735; 84484; 85025; 93010; 99283

== ENCOUNTER 2023-03-01 11:55 | Outpatient (CLI) | payer MEDICARE, SELFPAY ==
[2023-03-01 12:08] VITALS: BP 147/77; PULSE 74; RESP 20; TEMP 36.8; O2SAT 96
[2023-03-01] MEDS: Omnipaque 240 MG/ML 50 ML BTL IJ (12:31)
[2023-03-01] MEDS: Dexamethasone Sod. Phos./Pres-Free 10 MG/ML VIAL IJ (12:32)
--- NOTE | 2023-03-01 12:36 | DI.RAD_ITS ---
Exam(s) XR PAIN CLINIC LUMBAR SP 2V EXAM: XR PAIN CLINIC LUMBAR SP 2V CLINICAL HISTORY: Dx: Lumbar Radiculopathy TECHNIQUE: 2D and realtime digital imaging was performed. CONTRAST MATERIAL: Refer to procedure report. COMPARISON: No exams were available for comparison FINDINGS: Fluoroscopy was provided for Dr. Conde during the performance of a selective nerve root block. Vic valadez refer to the procedure report for complete details. Ka,r=5.63 mGy IMPRESSION:
--- NOTE | 2023-03-01 16:26 | PDOC.PAIN_ITS ---
Date of service: 03/01/23 Time of Service: 12:45 Pain Managment Procedure Note Procedure Note Procedure Note: PROCEDURE NOTE LEFT L4 SELECTIVE NERVE ROOT BLOCK Chief Complaint: LEFT leg pain in the L4 distribution. Date of Service: March 01, 2023 Patient: Kavita Becerra Provider: Ace Conde DO, MPH Kavita Becerra has been referred to the [facility] for a transforaminal epidural steroid injection. Pre-operative diagnosis: Lumbosacral Radiculopathy Post-operative diagnosis: Same Pre-Procedure Pain: VAS= 10/10 Comments: She was evaluated by her surgeon at [facility] and this procedure was recommended. Kavita was interviewed and the medical record reviewed. There were no medical, pharmacologic, radiographic or other structural contraindications to attempting a fluoroscopically-guided selective nerve root block. The risks, benefits, and potential side effects were reviewed with the patient. Risks include, but are not limited to, acnj-[id number] headache, infection, bleeding, nerve injury, spinal cord damage, allergic reaction, possible increase in symptoms over the ensuing 24 to 48 hours, paralysis, and . The patient appeared to understand, questions were answered to the patient?s satisfaction and the patient agreed to proceed. Once I obtained informed verbal consent, the printed consent form was signed by the patient and myself. A standard time-out procedure was performed. Kavita was placed in the prone position on the fluoroscopy table and automated blood pressure cuff, three lead EKG, and pulse oximeter were applied. The skin entry point for entering/approaching the space for the transforaminal epidural steroid injection was marked. Following thorough chlorhexadine preparation of the skin and draping, 2 ml of 1% lidocaine was infiltrated into the skin over the entry point and subcutaneous tissues. Under fluoroscopic guidance, in ipsilateral oblique view, a co-axial approach using a 5 22G spinal needle was advanced to the base of the L4 pedicle. The needle was advanced to the superio- posterior aspect of the neural foramen under lateral view. Oblique and AP views were rechecked. Under AP and lateral views, 1 ml of Omnipaque-240 was injected while visualized with fluoroscopy. There was no evidence of intravascular or intrathecal uptake, the epidural space was delineated. Next 0.5 ml of preservative-free 1% lidocaine was injected. (49 mls of Omnipaque-240 was wasted) There was no unusual discomfort expressed by Kavita. The needle was withdrawn without difficulty. Kavita was observed and was without hemodynamic, neurologic, or allergic reactions.? Fluoroscopic images were digitally archived. Kavita's vital signs were stable throughout the procedure and were as recorded in the docflowsheet by the nursing staff.? If given, dosages of intravenous drugs for anxiolysis and analgesia were documented in MAR. Follow up plans and appointments were discussed with Kavita. Post procedure instruction was given as documented in nursing records and having met discharge criteria Kavita was discharged from the [facility]. COMMENTS: Post-procedure pain: VAS= 0/10. Kavita will contact her surgeon for further instructions. I personally performed this entire procedure. ACE CONDE DO, MPH ABPMR-subspecialty board certification in Pain Medicine [facility]
== END 2023-03-01 11:56 | disposition home or self-care (01) ==
LOC: PC 11:55
PROVIDERS: PCP Family Medicine; Visit Provider Preventive Medicine Occupational Medicine
DX: M54.50 Low back pain, unspecified (principal); M54.17 Radiculopathy, lumbosacral region
CPT/HCPCS: 64483; 72100; Q9967

== ENCOUNTER 2023-07-04 16:57 | Outpatient (REF) | payer MEDICARE, SELFPAY | END 2023-07-04 16:58 | disposition home or self-care (01) | LOC: LBN 16:57 | PROVIDERS: PCP Family Medicine; Visit Provider Obstetrics & Gynecology Gynecology | DX: N39.0 Urinary tract infection, site not specified (principal) | CPT/HCPCS: 87077; 87086; 87186 ==

== ENCOUNTER → 2023-07-14 02:17 | Outpatient (CLI) | payer MEDICARE, SELFPAY ==
--- NOTE | 2023-07-14 07:54 | DI.MAMMO_ITS ---
Exam(s) MAMMO SCREENING EXAM: MAMMO SCREENING CLINICAL HISTORY: screening,Z12.39 TECHNIQUE: Bilateral full field digital CC and MLO mammographic images were obtained with 3D tomosyn thesis and utilizing computer aided detection (CAD). COMPARISON: Available for comparison. FINDINGS: Masses/Architectural Distortion: None seen. Microcalcifications: No suspicious pleomorphic-type are seen. Skin Thickening/Nipple Retraction: None. IMPRESSION: 1. No significant interval change with no specific features of malignancy noted. 2. Unless there is more urgent need, screening mammography is recommended, as per [employer] guidelines. BI-RADS Category 1 - Negative Breast Density - Category B - Scattered areas of fibroglandular density Breast density category C or D implies that the patient has dense breast tissue. Dense breast tissue is very common and is not abnormal but dense breast tissue can make it harder to find cancer on a ma mmogram. Also, dense breast tissue may increase their breast cancer risk. This information about the result of the mammogram report was provided to the patient to raise their awareness. Use this report when you speak with the patient about their risks for breast cancer, which includes their family hist ory. At that time, you may recommend for more screening tests (Ultrasound or MRI) as they might be us eful based on their risk. A negative radiographic report should not delay biopsy if a dominant or clinically suspicious mass is present. Up to ten percent of cancers are not identified on mammography. A negative report may reinforce clinical impression. Adenosis and dense breasts may obscure an underlying neoplasm. False positive reports average 6 to 10%. Patient will receive a letter notifying them of these results.
== END ==
PROVIDERS: PCP Family Medicine; Visit Provider Obstetrics & Gynecology Gynecology
DX: Z12.31 Encounter for screening mammogram for malignant neoplasm of breast (principal)
CPT/HCPCS: 77063; 77067

== ENCOUNTER → 2023-09-04 13:30 | Outpatient (BNVA) | payer MEDICARE, SELFPAY | PROVIDERS: PCP Family Medicine; Referring Provider Family Medicine; Visit Provider Surgery | DX: Z12.11 Encounter for screening for malignant neoplasm of colon (principal) ==

== ENCOUNTER 2023-09-04 15:05 | Outpatient (CLI) | payer MEDICARE, SELFPAY ==
[2023-09-04 15:06] LABS: Abs Immature Grans 0.03 10^3/uL (0.0-0.06); Absolute Basophil Count 0.07 10^3/uL (0.0-0.2); Absolute Eosinophil Count 0.18 10^3/uL (0.0-0.7); Absolute Lymphocyte Count 3.63 10^3/uL (1.2-3.4); Absolute Monocyte Count 0.74 10^3/uL (0.1-0.8); Absolute Neutrophil Count 4.76 10^3/uL (1.2-6.7); Basophils % 0.7; Eosinophils % 1.9; HCT 41.8 % (36.0-46.0); HGB 13.9 g/dL (11.2-15.7); Immature Grans % 0.3; Lymphocytes % 38.6; MCH 29.2 pg (27.0-33.0); MCHC 33.3 % (32.0-36.0); MCV 88 fL (80-95); MPV 9.8 fL (8.0-11.0); Monocytes % 7.9; Neutrophils % 50.6; Platelet Count 287 10^3/uL (130-400); RBC 4.76 10^6/uL (3.93-5.22); RDW 12.8 % (11.7-14.6); RDW-SD 41.7 fL; WBC 9.41 10^3/uL (4.4-10.8)
[2023-09-04 16:43] LABS: TSH (W/Ref FT4) 1.78 uIU/mL (0.36-3.74)
[2023-09-04 16:44] LABS: C-Reactive Protein < 0.50 mg/dL (<or=0.5)
== END 2023-09-04 15:06 | disposition home or self-care (01) ==
LOC: LBO 15:05
PROVIDERS: PCP Family Medicine; Visit Provider Surgery
DX: F41.0 Panic disorder [episodic paroxysmal anxiety]; I10 Essential (primary) hypertension; I73.9 Peripheral vascular disease, unspecified; E78.5 Hyperlipidemia, unspecified; J01.90 Acute sinusitis, unspecified; K21.9 Gastro-esophageal reflux disease without esophagitis; R15.2 Fecal urgency; R15.9 Full incontinence of feces; R63.4 Abnormal weight loss; Z87.891 Personal history of nicotine dependence
CPT/HCPCS: 36415; 84443; 85025; 86140

== ENCOUNTER 2023-09-05 18:29 | Outpatient (REF) | payer MEDICARE, SELFPAY ==
[2023-09-05 13:46] LABS: C Diff PCR Negative (Negative)
== END 2023-09-05 18:30 | disposition home or self-care (01) ==
LOC: LBN 18:29
PROVIDERS: PCP Family Medicine; Referring Provider Surgery; Visit Provider Surgery
DX: R19.7 Diarrhea, unspecified (principal); K21.9 Gastro-esophageal reflux disease without esophagitis; R15.2 Fecal urgency; R15.9 Full incontinence of feces; R63.4 Abnormal weight loss
CPT/HCPCS: 87493

== ENCOUNTER 2023-09-12 09:17 | Day surgery (SDC) | payer MEDICARE, SELFPAY ==
--- NOTE | 2023-09-11 22:02 | W.PM.DSUDISC ---
Date of service: 09/12/23 Time of Service: 11:56 Discharge Plan Disposition Patient Disposition: Home Condition: Good Discharge Details Reason For Visit: stomach and colon scope Attending Provider: Rowan Brewer Primary Care Provider: Sedrick Phan Home Meds and New Rx's Prescriptions: Continued acetaminophen [Tylenol Extra Strength] 500 mg tablet 1,000 mg PO DAILY PRN Patient Comments: Takes as needed for headaches. Adult 50 Plus Probiotic 4 billion cell capsule 4,000 mmu cells PO DAILY Rx Instructions: administer with a meal Myrbetriq 25 mg tablet extended release 24 hr 25 mg PO DAILY pantoprazole 40 mg tablet,delayed release (DR/EC) 40 mg PO DAILY Qty: 90 3RF valsartan 320 mg tablet 320 mg PO DAILY Qty: 90 3RF pravastatin 20 mg tablet 20 mg PO QHS Qty: 90 3RF estradiol [Estrace] 0.01 % (0.1 mg/gram) cream See Rx Instructions .ROUTE DAILY Qty: 42.5 1RF Rx Instructions: tiny amount of tip of finger -apply to urethra daily omega 0-qbw-hya-fish oil [Fish Oil] 1,000 mg (120 mg-180 mg) capsule 1 cap PO DAILY turmeric 400 mg capsule 400 mg PO DAILY multivitamin Tablet 1 tab PO DAILY escitalopram oxalate 10 mg tablet 10 mg PO DAILY Qty: 90 3RF Rx Instructions: per psych calcium carbonate-vitamin D3 [Caltrate with Vitamin D3] 1 EACH tablet 1 tab PO DAILY Digestive 8/L.acidoph/Pectin [Digestive Enzymes Tablet] 1 EACH tablet 1 ea PO DAILY cyanocobalamin (vitamin B-12) 1,000 mcg capsule 1,000 mcg PO DAILY simethicone [Gas Relief Extra Strength] 125 mg capsule 125 mg PO BID cholecalciferol (vitamin D3) 25 mcg (1,000 unit) capsule 2,000 unit PO DAILY aspirin 81 mg tablet,delayed release (DR/EC) 81 mg PO DAILY Qty: 100 3RF tolterodine [Detrol LA] 2 mg capsule,extended release 24hr 2 mg PO Q24H Qty: 30 1RF amlodipine 5 mg tablet 5 mg PO BID Qty: 180 4RF Rx Instructions: increase dose to 5 mg BID 3/17/20 MJS nitroglycerin [Nitrostat] 0.4 MG tablet, sublingual 0.4 mg .Route .DM PRNQty: 15 3RF trazodone 50 mg tablet 50 mg PO PRN PRN (Reason: Sleep) Rx Instructions: per mental health lorazepam 0.5 mg tablet 0.5 mg PO PRN PRN (Reason: anxiety) Rx Instructions: may take at bedtime as needed 11/20/19 cyclobenzaprine 5 mg tablet 5 mg PO PRN PRN (Reason: muscle spasm) Discontinued magnesium tablet 500 mg PO HS polyethylene glycol 3350 17 gram/dose powder 238 g PO ONCE Qty: 238 0RF Rx Instructions: take per colonoscopy instructions bisacodyl [Dulcolax (bisacodyl)] 5 mg tablet,delayed release (DR/EC) 5 mg PO ONCE Qty: 4 0RF Rx Instructions: take per colonoscopy instructions docusate sodium [Colace] 100 MG capsule 1 cap PO DAILY Discharge Instructions Additional Instructions: Anesthesia Follow Up: As we discussed today, discuss with your PCP 2021 Carotid artery study showing 50%-70% blockage. You will also need an echocardiogram to follow up on your 2016 echo that showed mild to moderate mitral regurgitation. --- Ta Navarrete CRNA DSU Colonoscopy Post-Op Instructions Instructions for Everyone who is given Anesthesia: For your safety, please do the following for the next twenty-four (24) hours: *Do Not operate a motor vehicle (car, truck, motorcycle, etc.) *Do Not drink alcoholic beverages or use any recreational drugs for the first 24 hours or while taking pain medications. The medications in your body may have a reaction that can be dangerous. *Do Not make any important decisions or sign any important papers. Findings: Melanosis coli No polyps or diverticula Follow up: No further colonoscopies required 1. No lifting over 20 pounds or strenuous activity for the first 24 hours after your procedure. After 24 hours there are no restrictions on your activity but you may feel fatigued for a few days. 2. After you arrive home you may have a light meal and return to your normal diet as you can tolerate it without feeling sick to your stomach. 3. You may have a bloated, gaseous feeling in your belly (abdomen) after a colonoscopy. Passing gas and belching will help. Walking or lying down on your left side with your knees flexed may relieve the discomfort. Call the office at [phone] (Office) or [phone] (Hospital) right away if you notice any of the following: a.Vomiting of blood or ?coffee ground stools?. b.Rectal bleeding 1Tbsp, blood clots or continuous bleeding. c.Severe belly (abdominal) pain. d.A hard distended belly (abdomen) and an inability to pass gas. 4. Please don?t expect to have a normal BM (bowel movement) for 2-3 days after your procedure. 5. If there are questions regarding the findings of your procedure, please contact your doctor 6. If you are unable to contact your doctor with a problem, contact the hospital at [phone]. 7. Continue all your regular medications unless directed otherwise. I understand the above instructions and have no questions. Signature of Patient or Adult Escort Name of Responsible Adult Escort Signature of Nurse Date/Time Stand Alone Forms: Anesthesia Discharge Inst., Dwight Cheng (DSU) Activity:: see above Diet:: see above Discharge Orders Discharge Orders: Discharge Order (Routine); Ordered 09/12/23 Ordered By: Rowan Brewer DS: Diagnosis Discharge Diagnosis (1) Anxiety: Status: Chronic (2) Depressive disorder: Status: Acute (3) Somatization disorder: Status: Acute (4) Panic anxiety syndrome: Status: Acute (5) Essential hypertension: Status: Acute (6) PVD (peripheral vascular disease): Status: Acute (7) Bilateral carotid artery disease: Status: Acute (8) Hyperlipidemia: Status: Chronic (9) Abnormal weight loss: Status: Acute Asessment and Plan: The patient is seen and examined after their colonoscopy.? The patient has been able to pass gas.? They are not having abdominal pain.? They have been able to tolerate liquids and a snack.? They do not have any nausea or vomiting.? They are not having any chest pain or shortness of breath.??? They are not having any rectal bleeding. Their vital signs have been stable-see nursing notes. We discussed findings during their colonoscopy, and any biopsies that were done/polyps that were removed. The patient will be sent a letter with any biopsy results, and when to repeat the colonoscopy.-see discharge instructions. Patient was given explicit instructions to follow-up regarding colonoscopy-refer to discharge instructions.? We reviewed resumption of medications. Patient verbalized understanding and discharged in stable and satisfactory condition- See nursing notes. (10) Esophageal dysphagia: Status: Acute (11) GERD (gastroesophageal reflux disease): Status: Acute (12) Fecal urgency: Status: Acute (13) Constipation: Status: Acute (14) Fecal soiling due to fecal incontinence: Status: Chronic (15) Fecal incontinence: Status: Acute (16) Acute diarrhea: Status: Acute (17) Dysuria: Status: Acute (18) Leaking of urine: Status: Chronic (19) Atrophy of vagina: Status: Acute (20) Smoker: Status: Acute (21) Melanosis coli: Status: Acute
[2023-09-12 09:33] VITALS: BP 125/61; PULSE 63; RESP 16; TEMP 36.5; O2SAT 97
[2023-09-12] MEDS: Lactated Ringers 1,000 ML 80 ML IV (09:50)
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
[2023-09-12 10:13] VITALS: BMI 26.0
--- NOTE | 2023-09-12 10:40 | BOWEL_PTH ---
PATIENT: Kavita Becerra LOC: [facility] U#:[id number] AGE/SX: 73/F ROOM: RE09/12/[address]: Rowan Brewer : 1950 BED: DIS: 09/12/2023 SPEC #: [id number] RECD: 09/12/23 12:53 STATUS: MEME REQ #: [id number] MALA: 09/12/23 10:[address]: Rowan Brewer DEPT: Surgical Specimen RECD BY: Ny Alan ENTERED: 09/12/23 12:54 SP TYPE: Bowel OTHR DR: Sedrick Phan MD Tissues: 1 - BIOPSY BOWEL 2 - BIOPSY BOWEL 3 - BIOPSY BOWEL 4 - BIOPSY BOWEL Procedures: GROSS AND MICRO LEVEL 4 Comments: [id number]
[2023-09-12 10:52] VITALS: BP 104/46; PULSE 53; TEMP 36; O2SAT 96
--- NOTE | 2023-09-12 11:08 | W.ANESPOSTOP ---
Postoperative Evaluation Date, Time and Location Date Performed: 09/12/23 Time Performed: 11:09 Patient Location: Day Surgery Unit Vital Signs Most Recent Imported Vital Signs: Most Recent Vital Signs Temp Pulse Resp BP Pulse Ox 36 C L 53 L 16 104/46 L 96 09/12/23 10:52 09/12/23 10:52 09/12/23 09:33 09/12/23 10:52 09/12/23 10:52 Pain Score Most Recent Pain Score: Most Recent Pain Score Pain Level 0 09/12/23 10:52 Assessment Mental Status: Awake (Alert & Oriented to Patient Baseline) Airway and Respiratory Function: Patent airway with normal (patient baseline) respiratory exam Cardiovascular Function: Hemodynamically Stable Hydration Status: Adequately Hydrated Nausea & Vomiting: No Nausea or Vomiting Pain: Pt. Denies Any Pain Peripheral Nerve Block: Patient did not receive a nerve block
[2023-09-12 11:17] VITALS: BP 122/48; PULSE 55; RESP 16; TEMP 36; O2SAT 97
--- NOTE | 2023-09-13 14:18 | COLE_ITS ---
Date of service: 09/12/23 Time of Service: 11:15 Colonoscopy Report Date of procedure: 09/12/23 Pre-op diagnosis general: Diarrhea/weight loss/RLQ pain Post-op diagnosis procedure note: other (Melanosis coli) Surgeon: Rowan Brewer Anesthesia Type: General:No Airway Estimated blood loss (mL): 1 Pathology: other Complications: None Disposition: same day Prep: Miralax/Dulcolax Retraction Time: 10 Procedure Description: After informed consent was obtained the patient was taken to the procedure room and placed in a left decubitous position. Monitors were applied and a time out was done. The patients name, date of , procedure, allergies to medications and metal in their body was reviewed. The patient was then sedated. Once sedated and comfortable a rectal exam was done. External exam was normal. Internal exam revealed a normal sphincter tone and no palpable masses. The scope was then introduced and retrofelexed. No internal hemorrhoids were identified. The scope was then advanced to the cecum without difficulty. The TI and appendiceal orifice were identified. The scope was then slowly retracted over 10 minutes back into the rectum. There are no polyps, AVMs, or diverticula visualized today. 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 Random biopsies are taken at 80/50/30 cm and the rectum. All specimens are retrieved and no bleeding is noted. the scope was removed and the patient was woken up and taken back to Same day surgery in stable condition. The patient tolerated the procedure well and there were no immediate complications. Follow up: The patient does not require any further routine screening colonoscopies, unless they develop changes in bowel habits or other new gastrointestinal complaints. [place] Bowel Prep [place]ar Bowel Prep Right Colon: 3 Left Colon: 3 Transverse Colon: 3 Total Score: 9
== END 2023-09-12 12:20 | disposition home or self-care (01) ==
LOC: SUR 09:17
PROVIDERS: PCP Family Medicine; Visit Provider Surgery
PROC: 0DJD8ZZ Inspection of Lower Intestinal Tract, Via Natural or Artificial Opening Endoscopic (ICD-10-PCS; CPT 45378; principal; 2023-09-12 10:00)
DX: Z12.11 Encounter for screening for malignant neoplasm of colon (principal); K21.9 Gastro-esophageal reflux disease without esophagitis; K63.89 Other specified diseases of intestine; F41.0 Panic disorder [episodic paroxysmal anxiety]; I10 Essential (primary) hypertension; R15.2 Fecal urgency; Z87.891 Personal history of nicotine dependence; R63.4 Abnormal weight loss; R10.31 Right lower quadrant pain
CPT/HCPCS: 45380; 88305; J2704

== ENCOUNTER 2024-03-20 12:31 | Outpatient (CLI) | payer MEDICARE, SELFPAY ==
[2024-03-20 12:03] LABS: Anion Gap 10.1 mmol/L (3-11); BUN 12 mg/dL (7-18); CO2 26.9 mmol/L (21.0-32.0); CREATININE 0.8 mg/dL (0.55-1.02); Calcium 9.5 mg/dL (8.5-10.1); Calculated LDL 163 mg/dL (<100); Chloride 103 mmol/L (98-107); Cholesterol 253 mg/dL (<200); Estimated GFR 78.24 (mL/min/1.73m2); Glucose 96 mg/dL (74-106); HDL Cholesterol 71 mg/dL (40-60); Potassium 4.2 mmol/L (3.5-5.1); Sodium 140 mmol/L (136-145); Triglyceride 97 mg/dL (<150)
== END 2024-03-20 12:32 | disposition home or self-care (01) ==
LOC: LBO 12:32
PROVIDERS: PCP Family Medicine; Visit Provider Family Medicine
DX: E78.5 Hyperlipidemia, unspecified (principal); E87.1 Hypo-osmolality and hyponatremia
CPT/HCPCS: 36415; 80048; 80061

== ENCOUNTER 2024-08-05 00:40 | Outpatient (CLI) | payer MEDICARE, SELFPAY ==
--- NOTE | 2024-08-05 08:00 | DI.MAMMO_ITS ---
Exam(s) MAMMO SCREENING EXAM: MAMMO SCREENING CLINICAL HISTORY: screening,z12.39 TECHNIQUE: Mammograms were interpreted according to the usual protocol including computer analysis w [place] CAD system, tomosynthesis and C-view imaging. COMPARISON: 2014 through 2023 FINDINGS: The breasts are composed of scattered fibroglandular densities, Breast Density category B. No suspicious masses or suspicious microcalcifications are seen. No skin thickening or abnormal axillary lymph nodes are seen. There has been no significant change from prior exams. IMPRESSION: BI-RADS Category 1, Negative mammogram Yearly screening mammography is recommended. Breast Density - Category B, scattered fibroglandular densities. A negative radiographic report should not delay biopsy if a dominant or clinically suspicious mass is present. Up to ten percent of cancers are not identified on mammography. A negative report may reinforce clinical impression. Adenosis and dense breasts may obscure an underlying neoplasm. False positive reports average 6 to 10%. Patient will receive a letter notifying them of these results.
== END 2024-08-05 01:00 ==
LOC: DI 00:40
PROVIDERS: PCP Family Medicine; Visit Provider Obstetrics & Gynecology Gynecology
DX: Z12.31 Encounter for screening mammogram for malignant neoplasm of breast (principal); R92.323 Mammographic fibroglandular density, bilateral breasts
CPT/HCPCS: 77063; 77067

== ENCOUNTER 2024-08-05 00:41 | Outpatient (CLI) | payer MEDICARE, SELFPAY ==
--- NOTE | 2024-08-05 08:00 | DI.CTLCSR_ITS ---
Exam(s) CT CHEST LUNG CANCER SCREEN EXAM: CT CHEST LUNG CANCER SCREEN kenzie chery CLINICAL HISTORY: Screening for lung cancer,cigarette smoker, f17.210 TECHNIQUE: Imaging Protocol: Axial computed tomography images with coronal and sagittal reformatted images were created and reviewed. Low dose screening protocol. COMPARISON: CT CHEST - LUNG CANCER SCREENING from 11/24/2017 FINDINGS: Tracheobronchial tree: No bronchiectasis or mucus plugging. Mediastinum and [place]: No dominant adenopathy or fluid collection. Pulmonary parenchyma: No consolidation or dominant measurable mass. No visible emphysematous changes. No significant interstitial changes. Lung Nodules: No suspicious nodules. Tiny bilateral calcified granulomas are again noted. Pleura: No effusion. No pneumothorax. Heart: The heart is not dilated. No coronary artery calcifications are seen. No pericardial effusion. Aorta: Thoracic aorta non-dilated. Upper abdomen: Unremarkable. Bones: Degenerative changes in the spine thoracic spine, greatest at T8-9. Soft Tissues: Unremarkable. IMPRESSION: No suspicious pulmonary nodules. Lung RADS Cat 1 - Negative: No nodules and definitely benign nodules Lung-RADS 1.0 CATEGORIES: Category 0 - Prior chest CT exam(s) being located for comparison. Category 1 - Annual screening in 12 months. No nodules or definitely benign nodules. Category 2 - Annual screening in 12 months. Benign appearance. Nodules with low likelihood of becomin g active cancer. Category 3 - 6-month follow-up. Probably benign. Short-term follow-up suggested. Nodules with low lik elihood of becoming active cancer. Category 4A - 3-month follow-up and CT/PET if >8 mm in size. Suspicious finding. Findings which requi re additional testing. Category 4B - Findings which require additional testing and tissue sampling. Category 4X - Category 3 or 4 nodules with additional features or imaging findings that increases the suspicion of malignancy. Modifier S- Potentially clinically significant findings (non lung cancer) RADIATION DOSE DELIVERED: !Error Total DLP DATA REPOSITORY: All CT scans at this facility are submitted to the National Radiology Data Registry (NRDR) Dose Index Registry (DIR) with the [employer] (ACR). RADIATION OPTIMIZATION: All CT scans at this facility use at least one of these dose optimization te chniques: automated exposure control; mA and/or kV adjustment per patient size (includes targeted exa ms where dose is matched to clinical indication); or iterative reconstruction.
== END 2024-08-05 01:01 ==
LOC: DI 00:43
PROVIDERS: PCP Family Medicine; Visit Provider Family Medicine
DX: F17.210 Nicotine dependence, cigarettes, uncomplicated (principal); Z12.2 Encounter for screening for malignant neoplasm of respiratory organs
CPT/HCPCS: 71271

== ENCOUNTER 2024-09-13 00:28 | Outpatient (CLI) | payer MEDICARE, SELFPAY ==
[2024-09-13 18:49] LABS: Hepatitis C Ab w Rflx HCV PCR Negative (Negative)
== END 2024-09-13 00:29 | disposition home or self-care (01) ==
PROVIDERS: PCP Family Medicine; Visit Provider Family Medicine
DX: Z11.59 Encounter for screening for other viral diseases (principal)
CPT/HCPCS: 36415; 86803

== ENCOUNTER 2024-10-08 09:12 | Outpatient (CLI) | payer MEDICARE, SELFPAY ==
[2024-10-08 13:20] LABS: Vitamin B12 558 pg/mL (193-986)
[2024-10-09 12:32] LABS: Syphilis Serology (RPR) Negative (Negative)
== END 2024-10-08 09:13 | disposition home or self-care (01) ==
PROVIDERS: PCP Family Medicine; Referring Provider Family Medicine; Visit Provider Family Medicine
DX: D64.9 Anemia, unspecified (principal); R41.3 Other amnesia
CPT/HCPCS: 36415; 82607; 86592

== ENCOUNTER 2024-10-29 00:15 | Outpatient (CLI) | payer MEDICARE, SELFPAY ==
--- NOTE | 2024-10-29 07:30 | DI.MRI_ITS ---
Exam(s) MR BRAIN WO EXAM: MR BRAIN WO CLINICAL HISTORY: rt frontal headache and cognitive changes,altered mental status,r41.82, TECHNIQUE: Multiplanar multisequence MRI of the brain was performed. COMPARISON: MR MRI - BRAIN W/WO CONTRAST from 03/10/2017 FINDINGS: VENTRICLES AND EXTRA AXIAL SPACES: Normal in size and morphology for the patient's age. MIDLINE SHIFT: None. CEREBRAL PARENCHYMA: No focus of restricted diffusion to suggest acute infarct. No space-occupying le erick identified. There are several areas of hyperintense signal seen in the white matter on the FLAIR and T2 weighted images most consistent with chronic microvascular ischemic disease. Stable cyst is again seen in the medial aspect of the right temporal lobe. HEMORRHAGE: None. BRAINSTEM/CEREBELLUM: Normal. CALVARIUM: Normal. VISUALIZED PARANASAL SINUSES/MASTOIDS:There is mucosal thickening in the right maxillary sinus. The remaining visualized paranasal sinuses and mastoid air cells are clear. [place]: Normal flow void. PITUITARY GLAND: Unremarkable. 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 IMPRESSION: 1. Age-appropriate cerebral atrophy and chronic microvascular ischemic disease. 2. No evidence of an acute infarct. DATA REPOSITORY:
== END 2024-10-29 00:35 ==
LOC: DI 00:15
PROVIDERS: PCP Family Medicine; Visit Provider Family Medicine
DX: R51.9 Headache, unspecified (principal); R41.82 Altered mental status, unspecified
CPT/HCPCS: 70551

== ENCOUNTER 2025-01-23 02:48 | Outpatient (CLI) | payer MEDICARE, SELFPAY ==
[2025-01-23 12:27] LABS: HCT 37.2 % (36.0-46.0); HGB 12.2 g/dL (11.2-15.7); MCH 28.6 pg (27.0-33.0); MCHC 32.8 % (32.0-36.0); MCV 87 fL (80-95); MPV 10.2 fL (8.0-11.0); Platelet Count 260 10^3/uL (130-400); RBC 4.27 10^6/uL (3.93-5.22); RDW 12.7 % (11.7-14.6); RDW-SD 40.4 fL; WBC 7.03 10^3/uL (4.4-10.8)
[2025-01-23 12:44] LABS: Anion Gap 8.8 mmol/L (3-11); BUN 9 mg/dL (7-18); CO2 29.2 mmol/L (21.0-32.0); Calcium 9.9 mg/dL (8.5-10.1); Chloride 102 mmol/L (98-107); Estimated GFR 67.92 (mL/min/1.73m2); Glucose 103 mg/dL (74-106); Potassium 3.8 mmol/L (3.5-5.1); Sodium 140 mmol/L (136-145)
== END 2025-01-23 02:49 | disposition home or self-care (01) ==
LOC: LOS 02:48
PROVIDERS: PCP Family Medicine; Visit Provider Family Medicine
DX: E87.1 Hypo-osmolality and hyponatremia (principal); R53.83 Other fatigue
CPT/HCPCS: 36415; 80048; 85027

== ENCOUNTER 2025-05-17 12:19 | Emergency (ER) | payer MEDICARE, SELFPAY ==
[2025-05-17 12:33] VITALS: BP 134/67; PULSE 69; RESP 18; TEMP 36.7; O2SAT 94
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
[2025-05-17 13:17] VITALS: BP 134/67; PULSE 69; RESP 18; TEMP 36.7; O2SAT 94
[2025-05-17 13:30] LABS: Abs Immature Grans 0.01 10^3/uL (0.0-0.06); HCT 38.8 % (36.0-46.0); HGB 12.9 g/dL (11.2-15.7); Immature Grans % 0.2 %; MCH 28.9 pg (27.0-33.0); MCHC 33.2 % (32.0-36.0); MCV 87 fL (80-95); MPV 9.7 fL (8.0-11.0); Platelet Count 247 10^3/uL (130-400); RBC 4.47 10^6/uL (3.93-5.22); RDW 12.6 % (11.7-14.6); RDW-SD 40.1 fL; WBC 6.56 10^3/uL (4.4-10.8)
[2025-05-17] MEDS: Normal Saline - Diluent 50 ML VIAL IJ (13:36)
[2025-05-17] MEDS: Normal Saline Flush 10 ML SYR IVP (13:36)
[2025-05-17] MEDS: Omnipaque 350 MG/ML 100 ML BTL IJ (13:37)
--- NOTE | 2025-05-17 13:39 | DI.CT_ITS ---
Exam(s) CT ABDOMEN PELVIS W EXAM: CT ABDOMEN PELVIS W CLINICAL HISTORY: RLQ abdominal pain with bloating, int. constipatio. TECHNIQUE: Imaging Protocol: Axial computed tomography images with coronal and sagittal reformatted images were created and reviewed CONTRAST MATERIAL: Intravenous: Omnipaque-350 75cc Oral: None COMPARISON: CT CTA THORAX from 03/10/2017 FINDINGS: VISUALIZED LUNG BASES: No nodules nor pleural effusions evident. ABDOMEN: There is no ascites. LIVER: No significant focal hepatic lesions nor dilated intrahepatic ducts. GALLBLADDER/BILIARY: Gallbladder is contracted. No gallbladder wall edema evident. No obvious calculi. CBD is not dilated. PANCREAS: No evidence of pancreatic mass nor dilatation of the pancreatic duct. SPLEEN: Spleen is not enlarged. No obvious intrasplenic lesions. Splenic and portal veins are patent. ADRENALS: There are no significant adrenal masses. KIDNEYS:No cysts evident. No solid renal masses. No calculi nor hydronephrosis.. ABDOMINAL AORTA: There is a fusiform infrarenal abdominal aortic aneurysm with maximum diameter of 3.2 cm. There are no prior abdominal studies for comparison. The iliac arteries are heavily calcified but not enlarged. LYMPH NODES:There is no retroperitoneal nor paraaortic adenopathy. ABDOMINAL WALL: Fat only containing right inguinal hernia. GI: There is fluid seen throughout the colon consistent with diarrhea state. No obvious colitis pattern. No evidence of small-bowel obstruction. Some fluid is also seen in distal small bowel loops PELVIS: GI: No evidence of appendicitis.No evidence of sigmoid diverticulitis. LYMPH NODES: There is no intrapelvic nor inguinal adenopathy. REPRODUCTIVE: Uterus is surgically absent. There are no abnormal adnexal masses and no abnormal fluid in the pelvis. URINARY BLADDER: Unremarkable. OSSEOUS: No fractures and no significant osseous lesions.There is posterior L5- S1 fusion hardware and laminectomies. There are also 2 fixation screws through the left sacroiliac joint. Hardware appears intact at all levels. No fractures. No significant osseous lesions. Moderate disc space narrowing noted at L4-5 level. No listhesis. IMPRESSION: 1. There is fluid seen throughout the colon and distal small bowel loops consistent with enteritis pattern. Correlation with clinical finding of diarrhea recommended. There is no obvious colitis pattern. No appendicitis nor diverticulitis evident. 2. Fusiform infrarenal abdominal aortic aneurysm with maximum diameter of 3.2 cm. 3. Intact vision hardware at L5-S1 level. Report called by myself to ER provider 05/17/2025 at 2:15 p.m. RADIATION DOSE DELIVERED: 381.89mGy.cm Total DLP DATA REPOSITORY: All CT scans at this facility are submitted to the National Radiology Data Registry (NRDR) Dose Index Registry (DIR) with the [employer] (ACR). RADIATION OPTIMIZATION: All CT scans at this facility use at least one of these dose optimization techniques: automated exposure control; mA and/or kV adjustment per patient size (includes targeted exams where dose is matched to clinical indication); or iterative reconstruction.
[2025-05-17 13:44] LABS: Lipase 35 U/L (<53)
[2025-05-17 13:45] LABS: Magnesium 2.2 mg/dL (1.6-2.6)
[2025-05-17 13:46] LABS: ALT 13 U/L (10-49); AST 25 U/L (<34); Albumin 4.6 g/dL (3.4-5.0); Alkaline Phosphatase 91 U/L (46-116); Anion Gap 7.2 mmol/L (3-11); BUN 6 mg/dL (9-23); Bilirubin, Total 0.30 mg/dL (0.2-1.2); CO2 26.8 mmol/L (20.0-31.0); Calcium 9.9 mg/dL (8.3-10.6); Chloride 107 mmol/L (98-107); Glucose 93 mg/dL (74-106); Potassium 4.3 mmol/L (3.5-5.1); Sodium 141 mmol/L (136-145); Total Protein 7.4 g/dL (5.7-8.2)
--- NOTE | 2025-05-17 14:37 | DI.VRAD_ITS ---
PROCEDURE INFORMATION: Exam: CT Abdomen And Pelvis With Contrast Exam date and time: 05/17/2025 1:32 PM Age: 75 years old Clinical indication: Abdominal pain; Localized; Right lower quadrant (rlq); Rlq pain TECHNIQUE: Imaging protocol: Computed tomography of the abdomen and pelvis with contrast. Radiation optimization: All CT scans at this facility use at least one of these dose optimization techniques: automated exposure control; mA and/or kV adjustment per patient size (includes targeted exams where dose is matched to clinical indication); or iterative reconstruction. Contrast material: OMNI 350; Contrast volume: 75 ml; Contrast route: INTRAVENOUS (IV); COMPARISON: CR XR HIP LT COMPLETE AP PELVIS 10/28/2022 11:07 AM FINDINGS: Liver: Normal. No mass. Gallbladder and biliary ducts: The gallbladder is contracted Pancreas: Normal. No ductal dilation. Spleen: Normal. No splenomegaly. Adrenal glands: Normal. No mass. Kidneys and ureters: There is no evidence of renal or ureteral calcifications.. Stomach and bowel: Unremarkable. No obstruction. No mucosal thickening. Appendix: Normal appendix .. Intraperitoneal space: Unremarkable. No free air. No significant fluid collection. Vasculature: Unruptured infrarenal abdominal aortic aneurysm 3.4 x3.2 cm. Lymph nodes: Unremarkable. No enlarged lymph nodes. Urinary bladder: Unremarkable as visualized. Reproductive: Unremarkable as visualized. Bones/joints: Screws across the left sacroiliac joint. Parallel spinous rods and pedicular Screws at L5 and S1 Soft tissues: Unremarkable. IMPRESSION: 1. Unruptured infrarenal abdominal aortic aneurysm 3.4 x3.2 cm. 2. There is no evidence of renal or ureteral calcifications.. 3. Normal appendix .. Dictated and Authenticated by: Yonny Matthews MD. Orderin Jose Miguel Malhotra MD
[2025-05-17 15:57] VITALS: BP 170/79; PULSE 50; RESP 16; O2SAT 96
== END 2025-05-17 15:59 | disposition home or self-care (01) ==
PROVIDERS: Emergency Provider Nurse Practitioner Family; PCP Family Medicine
DX: I71.40 Abdominal aortic aneurysm, without rupture, unspecified (principal); R03.0 Elevated blood-pressure reading, without diagnosis of hypertension
CPT/HCPCS: 99284; 99285; 36415; 80053; 83690; 74177; 83735; 85025; J3490